=== PATIENT | female | born 1970 | race Caucasian/White ===

== ENCOUNTER 2024-01-23 10:16 | Day surgery (SDC) | payer OTHER ==
[2024-01-23 11:04] LABS: HCG URINE TEST NEGATIVE (NEGATIVE)
[2024-01-23] MEDS ORDERED: Versed 2 MG/2 ML Injection ONE (12:05)
[2024-01-23] MEDS ORDERED: DEXMEDETOMIDINE 80 MCG/20ML-NS IV ONE (12:14)
--- NOTE | 2024-01-23 13:29 | XRAY ---
Indication: Bilateral L4-S1 MBB. Intraoperative fluoroscopy provided for 46 seconds. 9 digital spot image submitted for interpretation demonstrates individual posterior needle tips projecting over the expected left and right L4-S1 nerve roots. Correlate with intraoperative findings/report.
[2024-01-23] MEDS ORDERED: Lactated Ringers 1,000 ML IV ONE (15:05)
--- NOTE | 2024-01-23 16:44 | XRAY ---
46 seconds of fluoroscopy was used in surgery for a bilateral L4-S1 MBB.
== END 2024-01-23 12:53 | disposition home or self-care (01) ==
LOC: SDC-PAIN 10:16
PROVIDERS: ATTEND Psychiatry & Neurology Pain Medicine
DX: M47.816 Spondylosis without myelopathy or radiculopathy, lumbar region (principal)
CPT/HCPCS: 64493; 64494; 72020; 77002; 81025; J2250

== ENCOUNTER 2024-03-12 11:10 | Day surgery (SDC) | payer OTHER ==
[2024-03-12] MEDS ORDERED: BUPIVACAINE 0.5% VIAL IJ ONE (11:11)
[2024-03-12 11:47] LABS: HCG URINE TEST NEGATIVE (NEGATIVE)
[2024-03-12] MEDS ORDERED: Versed 2 MG/2 ML Injection ONE (12:22)
[2024-03-12] MEDS ORDERED: DEXMEDETOMIDINE 80 MCG/20ML-NS IV ONE (13:16)
--- NOTE | 2024-03-12 14:30 | XRAY ---
Indication: Bilateral L4-S1 MBB. Intraoperative fluoroscopy provided for 34 second. Single digital spot image submitted for interpretation demonstrates posterior needle tips projecting over the expected left and right L4-S1 nerve roots. Correlate with intraoperative findings/report.
[2024-03-12] MEDS ORDERED: Lactated Ringers 1,000 ML IV ONE (15:02)
--- NOTE | 2024-03-12 15:04 | XRAY ---
34 seconds of fluoroscopy was used in surgery for a bilateral L4-S1 MBB.
== END 2024-03-12 13:52 ==
LOC: SDC-PAIN 11:10
PROVIDERS: ATTEND Psychiatry & Neurology Pain Medicine
DX: M47.816 Spondylosis without myelopathy or radiculopathy, lumbar region (principal)
CPT/HCPCS: 64493; 64494; 72020; 77002; 81025; J2250